=== PATIENT | male | born 1965 | race Caucasian/White ===

== ENCOUNTER 2024-03-24 03:48 | Inpatient (IN) | payer OTHER, SELFPAY ==
[2024-03-23 20:59] VITALS: BP 118/55
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
[2024-03-23 21:39] VITALS: BP 107/69
[2024-03-23 21:55] LABS: Hematocrit 45.1 % (39.0-52.0); Hemoglobin 16.4 g/dL (13.0-18.0); Mean Corp Hgb Conc. 36.4 g/dL (33.0-37.0); Mean Corpuscular Hgb 31.6 pg (27.0-31.0); Mean Corpuscular Volume 86.9 fL (80.0-94.0); Mean Platelet Volume 9.8 fL (7.4-10.4); Platelet Count 215 10^3/uL (130-400); Red Blood Cell Count 5.19 10^6/uL (4.70-6.10); Red Cell Dist. Width 12.9 % (11.5-14.5); White Blood Cell Count 5.7 10^3/uL (4.8-10.8)
[2024-03-23 22:00] VITALS: BP 107/67
[2024-03-23 22:09] LABS: ALT (SGPT) 18 U/L (0-50); AST (SGOT) 24 U/L (17-59); Albumin 3.8 g/dl (3.5-5.0); Alcohol None Detected; Alkaline Phosphatase 82 U/L (38-126); Blood Urea Nitrogen 32 mg/dl (9-20); Calcium 9.6 mg/dl (8.4-10.2); Carbon Dioxide 22 mmol/L (22-30); Chloride 98 mmol/L (98-107); Glucose 164 mg/dl (70-99); Potassium 4.5 mmol/L (3.5-5.1); Sodium 131 mmol/L (135-145); Total Bilirubin 1.3 mg/dl (0.2-1.3); Total Protein 6.1 g/dl (6.3-8.2); eGFR 52.97
[2024-03-23] MEDS: NSS 1000 IV ×2 (22:15→23:32)
[2024-03-23 23:00] VITALS: BP 122/91
[2024-03-23 23:06] LABS: Pathologist Reviewed No
[2024-03-23 23:12] LABS: Absolute Neutrophils -Man Diff 3.4 10^3/uL (1.4-6.5); Band Neutrophils 7 % (0-3); Lymphocytes 18 % (20-51); Monocytes 22 % (2-9); Normal RBC Morphology Yes; Platelets Checked Yes; Segmented Neutrophils 53 % (42-75); Total Cells Counted 100
[2024-03-23 23:17] VITALS: BMI 26.3
[2024-03-23 23:30] VITALS: BP 125/90
[2024-03-24] VITALS (14 sets, daily range): BP systolic 121–156; BP diastolic 67–93; PULSE 121–130; O2SAT 91; BMI 26.4
[2024-03-24 01:18] LABS: Urine Albumin Negative (Neg - Trace); Urine Bilirubin 1+ (Negative); Urine Character Clear (Clear); Urine Color Yellow; Urine Glucose Negative (Negative); Urine Ketone Trace (Negative); Urine Leukocyte Negative (Negative); Urine Nitrite Negative (Negative); Urine Occult Blood 4+ (Negative); Urine Urobilinogen Negative (Neg - 1+)
[2024-03-24 01:26] LABS: Urine Amorphous Seen; Urine Squamous Cell >30 /LPF (Few)
[2024-03-24] MEDS: ROCEPHIN 1000 MG IV (01:29)
[2024-03-24] MEDS: OMNIPAQUE 50 ML PO (01:55)
[2024-03-24] MEDS: ZITHROMAX 252.5 MG IV (01:56)
[2024-03-24 02:06] LABS: Lactic Acid 1.3 mmol/L (0.7-2.0)
[2024-03-24 02:10] LABS: Urine Bacteria Moderate (Negative)
[2024-03-24 02:14] LABS: Urine Red Blood Cell >100 /HPF (0-2)
[2024-03-24 02:15] LABS: Urine Mucus Moderate
[2024-03-24 02:39] LABS: Amphetamines Negative (Negative); Barbiturates Negative (Negative); Benzodiazepines Negative (Negative); Buprenorphine Negative (Negative); Cocaine Negative (Negative); Marijuana Negative (Negative); Methadone Negative (Negative); Methamphetamines Negative (Negative); Opiates Negative (Negative); Phencyclidine Negative (Negative); Tricyclic Antidepressants Positive (Negative)
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
--- NOTE | 2024-03-24 05:45 | PTCARENOTE ---
Rec'd to 4E awake & alert. Able to ambulate from hallway to bed w/supervision. Gait uneven. Denies dizziness. Pt instructed to call for assist if needing to get OOB. Verbalizes understanding. Speech slurred & often difficult to understand. Pleasant
& cooperative.
[2024-03-24] MEDS: NSS 1000 IV ×2 (06:01→19:42)
[2024-03-24 06:34] LABS: Hematocrit 43.2 % (39.0-52.0); Hemoglobin 15.2 g/dL (13.0-18.0); Mean Corp Hgb Conc. 35.2 g/dL (33.0-37.0); Mean Corpuscular Hgb 31.8 pg (27.0-31.0); Mean Corpuscular Volume 90.4 fL (80.0-94.0); Mean Platelet Volume 10.2 fL (7.4-10.4); Platelet Count 190 10^3/uL (130-400); Red Blood Cell Count 4.78 10^6/uL (4.70-6.10); Red Cell Dist. Width 12.8 % (11.5-14.5); White Blood Cell Count 6.7 10^3/uL (4.8-10.8)
[2024-03-24 07:04] LABS: Blood Urea Nitrogen 28 mg/dl (9-20); Calcium 9.1 mg/dl (8.4-10.2); Carbon Dioxide 21 mmol/L (22-30); Chloride 101 mmol/L (98-107); Estimated Creatinine Clearance 66 ml/min; Glucose 137 mg/dl (70-99); HDL Cholesterol 47 mg/dl; LDL Cholesterol, Calculated 43 mg/dl; Potassium 4.4 mmol/L (3.5-5.1); Sodium 132 mmol/L (135-145); Total Cholesterol 123 mg/dl (50-199); Triglyceride 167 mg/dl (10-149); Very Low Density Lipoprotein 33 mg/dl (0-30); eGFR > 60.00
[2024-03-24] MEDS: DUONEB 3 ML INH ×4 (07:26→20:03)
[2024-03-24 07:28] LABS: TSH Reflex To Free T4 1.23 uIU/ml (0.47-4.68)
--- NOTE | 2024-03-24 07:54 | PTCARENOTE ---
Two attempts made by this RN to place NG TUBE. Patient unable to tolerate and refusing further attempts. Surgery made aware.
[2024-03-24] MEDS: BUSPAR 5 MG PO ×2 (08:14→19:42)
[2024-03-24] MEDS: LOW STRENGTH ASPIRIN 81 MG PO (08:14)
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
--- NOTE | 2024-03-24 13:38 | W.PN.HOSP.TC ---
Today's Communication/Plan
-
medical management
ivf
Assessment / Plan
Assessment / Plan
General: Other (58y M in no acute distress.)
HEENT: Other (Dry MM. Neck supple.)
Respiratory: Other (Decreased BS at bases. )
Cardiac: S1/S2 and Regular Rhythm
GI: Other (Abdomen is distended.. Bowel sounds are diminished throughout.)
Musculoskeletal: No Clubbing, No Cyanosis and No Edema
Neuro: Awake and Oriented
Psych: No Agitated or Anxious
A/P: Patient is a 58y M with PMH significant for schizophrenia who presents to ED from his nursing home for evaluation of change in mental status / sleeping all day today.
Altered Mental Status / Somnolence
-most likely 2/2 to SBO
-Improved today without no intervention
SBO likely 2/2 to adhesions
Abdominal Pain / Distention
-NPO, IVF
-Failed attempts of NGT, okay as passing flatus and no vomiting at this time; will have to readdress if n/v
-No plans for surgery, surgery on board
-OOB/ambulate, correct lytes, minimize narcotics
-conservative management
Schizophrenia
- Not acutely agitated / distressed.
- Continue current psychotropic med regimen without changes.
- Monitor for any new issues / complaints.
Tobacco Use Disorder
Suspected COPD
- Begin inhaled medications / nebs.
- O2 support as needed (currently on room air in the ED, but transient hypoxemia noted).
- Follow for any new / worsening issues.
MARCO A v CKD
- SCr = 1.5 compared to prior value of 1.1 (though this was 4 years ago).
- Not clear if this represents acute or gradual change.
- Follow renal function over the next 24-48 hours to determine current baseline.
#Hyponatremia, acute
-monitor with resuscitation
DVT Prophylaxis: Lovenox
Code Status: Full
Anticipated Discharge: Within 24 hours
Subjective/Interval History
-
Date of Service: March 24, 2024
Passing flatus, no bowel movement
Objective Data
-
Labs:
Laboratory Results
03/24/24
05:53
WBC 6.7
Hgb 15.2
Hct 43.2
Plt Count 190
Sodium 132 L
Potassium 4.4
Chloride 101
Carbon Dioxide 21 L
BUN 28 H
Creatinine 1.3
Glucose 137 H
Calcium 9.1
Vital Signs:
Vital Signs
Temp Pulse Resp BP Pulse Ox
97.5 F 110 22 124/71 93
03/24/24 11:21 03/24/24 11:21 03/24/24 11:21 03/24/24 11:21 03/24/24 11:21
Review of Systems
-
History Source: Patient
All other systems: Not reviewed unless documented
Data Reviewed
-
Diagnostic Radiology: Image personally visualized and interpreted and Report Reviewed by me
CT Scan: Image personally visualized and interpreted and Report Reviewed by me
Labs: Labs Reviewed by me
--- NOTE | 2024-03-24 15:10 | CM ---
Alert awake oriented patient who lives [facility] at [address] .This is a mental health home. 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 Moo said at discharge he will transport back to home.He is
independent in all activities of daily living.Pt said he has a nephew Tramaine.Pt said he has nurse give him an injection every 3 month for mental illness.Admission contacted to put [facility] information in summary.
Pharmacy [facility]
PCP DR Jovany Hernandez
PLAN Return to skilled nursing [facility] [address]
[2024-03-24] MEDS: LOVENOX 40 MG SC (17:34)
[2024-03-24] MEDS: CLOZARIL 300 MG PO (21:39)
[2024-03-25] VITALS (7 sets, daily range): BP systolic 121–153; BP diastolic 65–90; PULSE 101; O2SAT 92
--- NOTE | 2024-03-25 03:39 | DOWNTIME ---
There was a [employer] Downtime on 03/25/2024 from 0100 to 03/25/2024 at 0337. Downtime documentation of patient's care, including medication administrations, has been reconciled in the electronic record per guidelines. Refer to the
patient's paper chart under the miscellaneous tab to see printed paper medication records and downtime forms.
[2024-03-25] MEDS: NSS 1000 IV (06:24)
[2024-03-25 06:31] LABS: Hematocrit 38.4 % (39.0-52.0); Mean Corp Hgb Conc. 33.9 g/dL (33.0-37.0); Mean Corpuscular Hgb 31.2 pg (27.0-31.0); Mean Corpuscular Volume 92.1 fL (80.0-94.0); Mean Platelet Volume 9.8 fL (7.4-10.4); Platelet Count 181 10^3/uL (130-400); Red Blood Cell Count 4.17 10^6/uL (4.70-6.10); Red Cell Dist. Width 12.7 % (11.5-14.5); White Blood Cell Count 5.9 10^3/uL (4.8-10.8)
[2024-03-25] MEDS: DUONEB 3 ML INH ×4 (07:04→19:04)
[2024-03-25 07:16] LABS: ALT (SGPT) 12 U/L (0-50); AST (SGOT) 19 U/L (17-59); Alkaline Phosphatase 66 U/L (38-126); Blood Urea Nitrogen 19 mg/dl (9-20); Calcium 8.4 mg/dl (8.4-10.2); Carbon Dioxide 23 mmol/L (22-30); Chloride 107 mmol/L (98-107); Estimated Creatinine Clearance 78 ml/min; Glucose 100 mg/dl (70-99); Potassium 4.1 mmol/L (3.5-5.1); Sodium 136 mmol/L (135-145); Total Bilirubin 0.7 mg/dl (0.2-1.3); Total Protein 4.9 g/dl (6.3-8.2); eGFR > 60.00
--- NOTE | 2024-03-25 09:08 | W.PN.HOSP.TC ---
Today's Communication/Plan
-
adv to full liquid diet
Assessment / Plan
Assessment / Plan
General: Other (58y M in no acute distress.)
HEENT: Other (Dry MM. Neck supple.)
Respiratory: Other (Decreased BS at bases. )
Cardiac: S1/S2 and Regular Rhythm
GI: Other (Abdomen is distended.. Bowel sounds are diminished throughout.)
Musculoskeletal: No Clubbing, No Cyanosis and No Edema
Neuro: Awake and Oriented
Psych: No Agitated or Anxious
A/P: Patient is a 58y M with PMH significant for schizophrenia who presents to ED from his nursing home for evaluation of change in mental status / sleeping all day today.
Altered Mental Status / Somnolence
-most likely 2/2 to SBO
-resolved
SBO likely 2/2 to adhesions
Abdominal Pain / Distention
- adv to full liquid diet, tolerated CLD this AM
-Failed attempts of NGT, okay as passing flatus and no vomiting at this time; will have to readdress if n/v
-No plans for surgery, surgery on board
-OOB/ambulate, correct lytes, minimize narcotics
-conservative management
Schizophrenia
- Not acutely agitated / distressed.
- Continue current psychotropic med regimen without changes.
- Monitor for any new issues / complaints.
Tobacco Use Disorder
Suspected COPD
- Begin inhaled medications / nebs.
- O2 support as needed (currently on room air in the ED, but transient hypoxemia noted).
- Follow for any new / worsening issues.
MARCO A
-resolved
-most likely 2/2 to dehydration/pre-renal etology
- SCr = 1.5 compared to prior value of 1.1 (though this was 4 years ago).
#Hyponatremia, acute
-monitor with resuscitation
-resolved
DVT Prophylaxis: Lovenox
Code Status: Full
Anticipated Discharge: Within 24 hours
Subjective/Interval History
-
Date of Service: March 25, 2024
Patient had bowel movements overnight, advancing diet
Objective Data
-
Labs:
Laboratory Results
03/25/24
06:20
WBC 5.9
Hgb 13.0
Hct 38.4 L
Plt Count 181
Sodium 136
Potassium 4.1
Chloride 107
Carbon Dioxide 23
BUN 19
Creatinine 1.1
Glucose 100 H
Calcium 8.4
Total Bilirubin 0.7
AST 19
ALT 12
Alkaline Phosphatase 66
Vital Signs:
Vital Signs
Temp Pulse Resp BP Pulse Ox
97.5 F 101 20 127/66 93
03/25/24 06:58 03/25/24 07:05 03/25/24 07:05 03/25/24 06:58 03/25/24 07:05
I&O
03/24/24 03/25/24 03/26/24
06:59 06:59 06:59
Intake Total 120 / 120
Balance 120 / 120
Review of Systems
-
History Source: Patient
All other systems: Not reviewed unless documented
Data Reviewed
-
Diagnostic Radiology: Image personally visualized and interpreted and Report Reviewed by me
CT Scan: Image personally visualized and interpreted and Report Reviewed by me
Labs: Labs Reviewed by me
[2024-03-25] MEDS: BUSPAR 5 MG PO ×2 (09:25→21:13)
[2024-03-25] MEDS: LOW STRENGTH ASPIRIN 81 MG PO (09:26)
--- NOTE | 2024-03-25 11:11 | W.PN.GS2 ---
Today's Communication / Plan
-
Fulls
Assessment / Plan
-
Patient is a 58 yo M p/w SBO likely secondary to adhesions
Improving, passing flatus, farhat cld
KUB with persistent sb dilation
-- Adv to fulls
-- No plans for surgery at this time
-- OOB/ambulate, correct lytes, minimize narcotics
Subjective Data
-
Date of Service: March 25, 2024
No complaints, feeling better, passing flatus, denies n/v, farhat cld
Objective Data
-
Intake and Output
03/24/24 03/25/24 03/26/24
06:59 06:59 06:59
Intake Total 120 / 120
Balance 120 / 120
Intake:
Oral fluids 120 / 120
Other:
Number of approximated MODERATE 2
amounts of urine
Number of approximated LARGE 2
amounts of urine
Vital Signs
Temp Pulse Resp BP Pulse Ox
97.5 F 101 20 127/66 93
03/25/24 06:58 03/25/24 07:05 03/25/24 07:05 03/25/24 06:58 03/25/24 07:05
Lab Results
03/25/24 06:20
03/25/24 06:20
Calcium 8.4 mg/dl (8.4-10.2) 03/25/24 06:20
Total Bilirubin 0.7 mg/dl (0.2-1.3) 03/25/24 06:20
AST 19 U/L (17-59) 03/25/24 06:20
ALT 12 U/L (0-50) 03/25/24 06:20
Alkaline Phosphatase 66 U/L (38-126) 03/25/24 06:20
Total Protein 4.9 g/dl (6.3-8.2) L 03/25/24 06:20
Albumin 3.0 g/dl (3.5-5.0) L 03/25/24 06:20
Physical Exam
-
Gen: NAD
Abd: soft, nt, nd
[2024-03-25] MEDS: LOVENOX 40 MG SC (18:09)
[2024-03-25] MEDS: CLOZARIL 300 MG PO (21:13)
[2024-03-26 03:25] VITALS: BP 154/95
[2024-03-26 06:37] LABS: Hematocrit 38.1 % (39.0-52.0); Mean Corp Hgb Conc. 34.1 g/dL (33.0-37.0); Mean Corpuscular Hgb 31.2 pg (27.0-31.0); Mean Corpuscular Volume 91.4 fL (80.0-94.0); Mean Platelet Volume 9.5 fL (7.4-10.4); Platelet Count 210 10^3/uL (130-400); Red Blood Cell Count 4.17 10^6/uL (4.70-6.10); Red Cell Dist. Width 12.5 % (11.5-14.5); White Blood Cell Count 8.9 10^3/uL (4.8-10.8)
[2024-03-26] MEDS: DUONEB 3 ML INH ×2 (07:09→11:00)
[2024-03-26 07:21] VITALS: BP 135/75
[2024-03-26 07:42] LABS: ALT (SGPT) 11 U/L (0-50); AST (SGOT) 16 U/L (17-59); Albumin 3.1 g/dl (3.5-5.0); Alkaline Phosphatase 73 U/L (38-126); Blood Urea Nitrogen 11 mg/dl (9-20); Calcium 8.8 mg/dl (8.4-10.2); Carbon Dioxide 24 mmol/L (22-30); Chloride 106 mmol/L (98-107); Estimated Creatinine Clearance 86 ml/min; Glucose 132 mg/dl (70-99); Sodium 136 mmol/L (135-145); Total Bilirubin 0.5 mg/dl (0.2-1.3); eGFR > 60.00
--- NOTE | 2024-03-26 08:16 | W.PN.HOSP.TC ---
Addendum entered and electronically signed by Aiden Wallis MD 03/26/24 15:27:
[id number]
Original Note:
Today's Communication/Plan
-
LRD
Outpt Colonoscopy/GI/Surgery/PCP follow up
Assessment / Plan
Assessment / Plan
General: Other (58y M in no acute distress.)
HEENT: Other (Dry MM. Neck supple.)
Respiratory: Other (Decreased BS at bases. )
Cardiac: S1/S2 and Regular Rhythm
GI: Other (Abdomen is distended.. Bowel sounds are diminished throughout.)
Musculoskeletal: No Clubbing, No Cyanosis and No Edema
Neuro: Awake and Oriented
Psych: No Agitated or Anxious
A/P: Patient is a 58y M with PMH significant for schizophrenia who presents to ED from his skilled nursing for evaluation of change in mental status / sleeping all day today.
Altered Mental Status / Somnolence
-most likely 2/2 to SBO
-resolved
-no evidence of cva on ct- stop asa
SBO likely 2/2 to adhesions
Abdominal Pain / Distention
- Adv to LRD - tolerating well, +BMs
-Failed attempts of NGT, okay as passing flatus and no vomiting at this time; will have to readdress if n/v
-No plans for surgery, surgery on board
-OOB/ambulate, correct lytes, minimize narcotics
-conservative management
- F/u outpatient surgery/GI outpatient
Schizophrenia
- Not acutely agitated / distressed.
- Continue current psychotropic med regimen without changes.
- Monitor for any new issues / complaints.
Tobacco Use Disorder
Can have PFTs outpatient
MARCO A
-resolved
-most likely 2/2 to dehydration/pre-renal etology
- SCr = 1.5 compared to prior value of 1.1 (though this was 4 years ago).
#Hyponatremia, acute
-monitor with resuscitation
-resolved
DVT Prophylaxis: Lovenox
Code Status: Full
More than 30 minutes spent in discharge including
Final examination of the patient
Summarizing hospital stay
Instructions for continuing care to all relevant caregivers
Preparation of discharge records, prescriptions, and referral forms
Total time spent (35 in minutes):
Anticipated Discharge: Today
Subjective/Interval History
-
Date of Service: March 26, 2024
tolerating LRD well
Objective Data
-
Labs:
Laboratory Results
03/26/24
06:21
WBC 8.9
Hgb 13.0
Hct 38.1 L
Plt Count 210
Sodium 136
Potassium 4.0
Chloride 106
Carbon Dioxide 24
BUN 11
Creatinine 1.0
Glucose 132 H
Calcium 8.8
Total Bilirubin 0.5
AST 16 L
ALT 11
Alkaline Phosphatase 73
Vital Signs:
Vital Signs
Temp Pulse Resp BP Pulse Ox
98.9 F 96 16 154/95 92
03/26/24 03:25 03/26/24 07:10 03/26/24 07:10 03/26/24 03:25 03/26/24 07:10
I&O
03/25/24 03/26/24 03/27/24
06:59 06:59 06:59
Intake Total 120 / 120 1020 / 1020
Balance 120 / 120 1020 / 1020
Review of Systems
-
History Source: Patient
All other systems: Not reviewed unless documented
Data Reviewed
-
Diagnostic Radiology: Image personally visualized and interpreted and Report Reviewed by me
CT Scan: Image personally visualized and interpreted and Report Reviewed by me
Labs: Labs Reviewed by me
[2024-03-26] MEDS: BUSPAR 5 MG PO (09:12)
[2024-03-26] MEDS: LOW STRENGTH ASPIRIN 81 MG PO (09:12)
--- NOTE | 2024-03-26 10:24 | W.PN.GS2 ---
Today's Communication / Plan
-
`
Assessment / Plan
-
Patient is a 58 yo M p/w SBO likely secondary to adhesions
clinically resolving - farhat diet advancement and +BMs
-- okay for d/c from surgical standpoint
Subjective Data
-
Date of Service: March 26, 2024
Patient seen and examined
States that he had an omelette for breakfast which she tolerated well without abdominal bloating distention cramping or pain.
Passing flatus and he reportedly moved his bowels
Objective Data
-
Intake and Output
03/25/24 03/26/24 03/27/24
06:59 06:59 06:59
Intake Total 120 / 120 1020 / 1020
Balance 120 / 120 1020 / 1020
Intake:
Oral fluids 120 / 120 1020 / 1020
Other:
Number of approximated MODERATE 2 2
amounts of urine
Number of approximated LARGE 2
amounts of urine
Vital Signs
Temp Pulse Resp BP Pulse Ox
97.3 F 95 16 135/75 97
03/26/24 07:21 03/26/24 07:21 03/26/24 07:21 03/26/24 07:21 03/26/24 08:30
Lab Results
03/26/24 06:21
03/26/24 06:21
Calcium 8.8 mg/dl (8.4-10.2) 03/26/24 06:21
Total Bilirubin 0.5 mg/dl (0.2-1.3) 03/26/24 06:21
AST 16 U/L (17-59) L 03/26/24 06:21
ALT 11 U/L (0-50) 03/26/24 06:21
Alkaline Phosphatase 73 U/L (38-126) 03/26/24 06:21
Total Protein 5.0 g/dl (6.3-8.2) L 03/26/24 06:21
Albumin 3.1 g/dl (3.5-5.0) L 03/26/24 06:21
Physical Exam
-
NAD AAOx3
ABD: softly protuberant but not distended, nontender, no R/R/G
[2024-03-26 11:40] VITALS: BP 135/55
--- NOTE | 2024-03-26 12:09 | CM ---
entered order for discharge.
PT OT saw said no skilled needs
Called powerhouse [employer] [facility] # [phone] at [address] [facility] will black pickler pt in room at 1:30 today.
[facility] requested dc summary package.
PLAN Return to [place] [phone] [facility]
== END 2024-03-26 13:30 | disposition home or self-care (01) | DRG 389 ==
LOC: 4 EAST ACU 03:48
PROVIDERS: ADMITTING PHYSICIAN Hospitalist; ATTENDING PHYSICIAN Internal Medicine; EMERGENCY PHYSICIAN Emergency Medicine; FAMILY PHYSICIAN Internal Medicine; OTHER PHYSICIAN Surgery
DX: K56.51 Intestinal adhesions [bands], with partial obstruction (principal); E87.1 Hypo-osmolality and hyponatremia; N17.9 Acute kidney failure, unspecified; F20.9 Schizophrenia, unspecified; G31.84 Mild cognitive impairment of uncertain or unknown etiology; F10.10 Alcohol abuse, uncomplicated; F17.210 Nicotine dependence, cigarettes, uncomplicated; E86.0 Dehydration; J44.9 Chronic obstructive pulmonary disease, unspecified; R09.02 Hypoxemia; N40.0 Benign prostatic hyperplasia without lower urinary tract symptoms; Z88.5 Allergy status to narcotic agent; Z88.0 Allergy status to penicillin
CPT/HCPCS: 70450; 71046; 74018; 74176; 80048; 80053; 80061; 80306; 81003; 81015; 82077; 83605; 84443; 85025; 85027; 87040; 87070; 87086; 93005; 94640; 96361; 96365; 96366; 96375; 97116; 97161; 97165; 97535; 99285

== ENCOUNTER → 2025-07-14 10:26 | Outpatient (REF) | payer OTHER, SELFPAY | LOC: HWCARD 10:26 | PROVIDERS: ATTENDING PHYSICIAN Registered Nurse; FAMILY PHYSICIAN Internal Medicine | DX: R94.31 Abnormal electrocardiogram [ECG] [EKG] (principal) | CPT/HCPCS: 93005 ==